=== PATIENT | male | born 1965 | race African-American/Black ===

== ENCOUNTER 2023-04-17 13:50 | Inpatient (IN) | payer OTHER ==
[~2023-04-17] VITALS: Ht 177.8 cm; Wt 115.7 kg
[2023-04-17] MEDS ORDERED: ONDANSETRON HCL 4MG/2ML INJ IV ONE ×3 (14:15)
[2023-04-17] MEDS ORDERED: FENTANYL CITRATE/PF 50MCG/ML 2ML VIAL IV ONE ×2 (14:15→15:45)
[2023-04-17] MEDS ORDERED: CEFAZOLIN 1000MG PREMIX 50 ML IV ONE (14:15)
[2023-04-17] MEDS ORDERED: SODIUM CHLORIDE 0.9% 1,000 ML IV ONE (14:15)
[2023-04-17] MEDS ORDERED: PROPOFOL 200MG/20ML VIAL IV PRN (14:15)
[2023-04-17 14:26] LABS: BASOPHILS % 0.4 % (0.0-2.0); EOSINOPHILS % 0.3 % (0.0-5.0); HEMATOCRIT. 41.2 % (42.0-52.0); HEMOGLOBIN. 13.5 g/dL (14.0-18.0); LYMPHOCYTES % 20.6 % (20.0-50.0); MEAN CORPUSCULAR HEMOGLOBIN 28.3 pg (28.0-32.0); MEAN CORPUSCULAR HGB CONC 32.7 g/dL (31.0-37.0); MEAN CORPUSCULAR VOLUME 86.5 fL (80.0-94.0); MEAN PLATELET VOLUME 7.2 fl (7.4-10.4); MONOCYTES % 5.8 % (2.0-8.0); NEUTROPHILS % 72.9 % (40.0-76.0); PLATELET 336 x1000/uL (130-400); RED BLOOD CELL COUNT 4.76 mill/uL (4.7-6.1); RED CELL DISTRIBUTION WIDTH 14.7 % (11.6-14.6); WHITE BLOOD COUNT 9.5 x1000/uL (4.5-11.0)
[2023-04-17 14:35] LABS: INR 1.1; PROTHROMBIN TIME 11.3 sec (9.6-11.0)
[2023-04-17 15:17] LABS: ALANINE AMINOTRANSFERASE 71 IU/L (10-49); ALBUMIN 4.1 g/dL (3.2-4.8); ASPARTATE AMINOTRANSFERASE 78 IU/L (<34); BILIRUBIN TOTAL 0.8 mg/dL (0.1-1.0); CALCIUM 9.5 mg/dL (8.7-10.4); CARBON DIOXIDE 27 mEq/L (21-32); CHLORIDE 109 mEq/L (98-107); CREATININE 1.1 mg/dL (0.6-1.3); GLUCOSE 111 mg/dL (70-105); POTASSIUM 4.4 mEq/L (3.5-5.1); SODIUM 144 mEq/L (136-145); UREA NITROGEN BLOOD 10 mg/dL (9-23)
[2023-04-17] MEDS ORDERED: DIPHENHYDRAMINE 50MG/ML VIAL IV PRN (15:30)
[2023-04-17] MEDS ORDERED: NALOXONE HCL 0.4MG/ML VIAL IV PRN (15:30)
[2023-04-17] MEDS ORDERED: ONDANSETRON HCL 4MG/2ML INJ IV PRN ×3 (15:30→17:30)
[2023-04-17] MEDS ORDERED: ACETAMINOPHEN 325MG TABLET PO PRN (15:30)
[2023-04-17] MEDS ORDERED: MORPHINE SULFATE 2 MG/ML CPJ (NOT FOR IM USE) IV PRN (15:30)
[2023-04-17] MEDS ORDERED: IPRATROPIUM/ALBUTEROL 0.5-3(2.5)MG/3ML NEB HHN PRN (15:30)
[2023-04-17] MEDS ORDERED: GENTAMICIN SULF 40MG/ML 2ML VIAL ONE (16:30)
[2023-04-17] MEDS ORDERED: BUPIVACAINE HCL/PF 0.5% (5MG/ML) 10ML ONE (16:30)
[2023-04-17] MEDS ORDERED: HYDROMORPHONE HCL/PF 2MG/ML CPJ IV PRN ×2 (16:30→17:30)
[2023-04-17] MEDS ORDERED: CEFAZOLIN SODIUM 1000MG/VIAL ONE ×2 (16:30→16:34)
[2023-04-17] MEDS ORDERED: HYDROCODONE/ACETAMINOPHEN 5/325MG TABLET PO PRN (16:30)
[2023-04-17] MEDS ORDERED: POLYMYXIN B SULFATE 500000 UNITS/VIAL ONE (16:30)
[2023-04-17] MEDS ORDERED: VANCOMYCIN HCL 1 GM/VIAL ONE ×2 (16:30→17:11)
[2023-04-17] MEDS ORDERED: DEXAMETHASONE 4MG/ML 1ML VIAL ONE (16:34)
[2023-04-17] MEDS ORDERED: SUCCINYLCHOLINE CHLORIDE 200MG/10ML IV ONE (16:34)
[2023-04-17] MEDS ORDERED: ROCURONIUM BROMIDE 10MG/ML VIAL 5ML IV ONE (16:34)
[2023-04-17] MEDS ORDERED: PROPOFOL 200MG/20ML VIAL IV ONE (16:35)
[2023-04-17] MEDS ORDERED: FENTANYL CITRATE/PF 50MCG/ML 2ML VIAL ONE (16:36)
[2023-04-17] MEDS ORDERED: MIDAZOLAM HCL 2 MG/2 ML VIAL ONE (16:38)
[2023-04-17] MEDS ORDERED: LIDOCAINE HCL 1% 10 MG/ML 10ML VIAL ONE (16:39)
[2023-04-17] MEDS ORDERED: HYDROMORPHONE HCL/PF 2MG/ML CPJ ONE (17:13)
[2023-04-17] MEDS ORDERED: GLYCOPYRROLATE 0.2 MG/ML 2ML VIAL ONE ×2 (17:21→17:22)
[2023-04-17] MEDS ORDERED: NEOSTIGMINE METHYLSULFATE 1MG/ML 10 ML VIAL ONE (17:21)
[2023-04-17] MEDS ORDERED: MEPERIDINE HCL/PF 25MG/ML CPJ IV PRN (17:30)
[2023-04-17] MEDS ORDERED: LABETALOL 5MG/ML SYR 20 MG/4 ML SYRINGE IV PRN (17:30)
[2023-04-17] MEDS ORDERED: ROPIVACAINE HCL 1% 20 ML VIAL EPI ONE (17:41)
[2023-04-17] MEDS ORDERED: SODIUM CHLORIDE 0.9% 10ML VIAL ONE (17:48)
[2023-04-17 22:00] VITALS: BP 129/75; PULSE 85; RESP 20; TEMP 98.1
[2023-04-18] VITALS: BP 129/75; PULSE 85; RESP 20; TEMP 98.1
[2023-04-18] MEDS: CEFAZOLIN 1000MG PREMIX 50 ML IV SCH ×2 (01:34→08:18)
[2023-04-18] MEDS: HYDROCODONE/ACETAMINOPHEN 5/325MG TABLET PO PRN ×3 (01:43→11:46)
[2023-04-18 02:00] VITALS: RESP 24
[2023-04-18] MEDS ORDERED: DEXTROSE 50% WATER 50ML SYRINGE IV PRN (02:15)
[2023-04-18] MEDS: BLOOD SUGAR DIAGNOSTIC STRIP TEST SCH ×2 (07:09→12:20)
[2023-04-18] MEDS: INSULIN LISPRO 100 UNITS/ML SUBCUT SCH ×2 (07:11→12:39)
[2023-04-18] MEDS ORDERED: OMEPRAZOLE 20MG CAPSULE EXTENDED RELEASE PO SCH (07:20)
[2023-04-18] MEDS ORDERED: LEVOTHYROXINE SODIUM 125MCG TABLET PO SCH (07:20)
[2023-04-18 08:00] VITALS: BP 125/82; PULSE 91; RESP 20; TEMP 97.3
[2023-04-18 08:19] LABS: BASOPHILS % 0.2 % (0.0-2.0); HEMATOCRIT. 38.4 % (42.0-52.0); HEMOGLOBIN. 12.6 g/dL (14.0-18.0); LYMPHOCYTES % 10.3 % (20.0-50.0); MEAN CORPUSCULAR HEMOGLOBIN 28.3 pg (28.0-32.0); MEAN CORPUSCULAR HGB CONC 32.7 g/dL (31.0-37.0); MEAN CORPUSCULAR VOLUME 86.6 fL (80.0-94.0); MONOCYTES % 7.2 % (2.0-8.0); NEUTROPHILS % 82.3 % (40.0-76.0); RED BLOOD CELL COUNT 4.43 mill/uL (4.7-6.1); RED CELL DISTRIBUTION WIDTH 14.7 % (11.6-14.6); WHITE BLOOD COUNT 11.3 x1000/uL (4.5-11.0)
[2023-04-18 08:36] LABS: DIFFERENTIAL COMMENT 1
[2023-04-18 08:55] LABS: ALANINE AMINOTRANSFERASE 52 IU/L (10-49); ALBUMIN 3.9 g/dL (3.2-4.8); ASPARTATE AMINOTRANSFERASE 46 IU/L (<34); BILIRUBIN TOTAL 0.7 mg/dL (0.1-1.0); CALCIUM 9.1 mg/dL (8.7-10.4); CARBON DIOXIDE 26 mEq/L (21-32); CHLORIDE 106 mEq/L (98-107); CREATININE 0.9 mg/dL (0.6-1.3); GLUCOSE 112 mg/dL (70-105); POTASSIUM 4.2 mEq/L (3.5-5.1); SODIUM 142 mEq/L (136-145); UREA NITROGEN BLOOD 6 mg/dL (9-23)
[2023-04-18] MEDS ORDERED: ENOXAPARIN 40MG/0.4ML SYR SUBCUT SCH (09:00)
[2023-04-18 11:07] LABS: HEPATITIS B SURFACE ANTIGEN NEGATIVE (Negative); HEPATITIS C AB NON REACTIVE (Neg) (Negative)
[2023-04-18 12:00] VITALS: BP 134/74; PULSE 87; RESP 18; TEMP 98.1
[2023-04-18 14:29] VITALS: BP 134/74; PULSE 87; TEMP 98.1; O2SAT 97
[2023-04-18 16:00] VITALS: BP 139/76; PULSE 88; RESP 18; TEMP 97.8
[2023-04-18] MEDS ORDERED: ATORVASTATIN CALCIUM 20MG TABLET PO SCH (21:00)
== END 2023-04-18 17:00 | disposition short-term general hospital (02) | DRG 494 ==
LOC: ER 13:57 → EDBD 13:57 → 6EST 14:49
PROVIDERS: ADMIT Internal Medicine; ATTEND Internal Medicine
PROC: 0QSJXZZ Reposition Right Fibula, External Approach (ICD-10-PCS; principal; 2023-04-17)
PROC: 0QSG05Z Reposition Right Tibia with External Fixation Device, Open Approach (ICD-10-PCS; 2023-04-17)
PROC: 0QSJ04Z Reposition Right Fibula with Internal Fixation Device, Open Approach (ICD-10-PCS; 2023-04-17)
PROC: 0Y9K0ZZ Drainage of Right Ankle Region, Open Approach (ICD-10-PCS; 2023-04-17)
PROC: 5A09357 Assistance with Respiratory Ventilation, Less than 24 Consecutive Hours, Continuous Positive Airway Pressure (ICD-10-PCS; 2023-04-17)
DX: S82.891C Other fracture of right lower leg, initial encounter for open fracture type IIIA, IIIB, or IIIC (principal); E78.00 Pure hypercholesterolemia, unspecified; S82.401A Unspecified fracture of shaft of right fibula, initial encounter for closed fracture; W11.XXXA Fall on and from ladder, initial encounter; Y93.89 Activity, other specified; Y92.89 Other specified places as the place of occurrence of the external cause; Y99.8 Other external cause status
CPT/HCPCS: 36415; 71045; 73590; 73600; 76000; 80053; 82962; 83036; 85025; 86705; 87340; 93005; 94660; 99285; J0330; J0690; J1100; J1170; J1580; J1650; J2250; J2405; J2704; J2710; J2795; J3010; J3370; J3490; J7030